=== PATIENT | female | born 1950 | race Caucasian/White ===

== ENCOUNTER 2019-11-24 08:59 | Outpatient (CLI) | payer MEDICARE, OTHER, SELFPAY ==
--- NOTE | 2019-11-24 09:13 | MM_ITS ---
WS: [id number] Bilateral screening digital mammogram, 11/24/2019 Clinical Data: SCREENING Comparison: 11/22/2018, 10/08/2017, 06/26/2016, 06/02/2013, 02/23/2011, 03/25/2009. Findings: The breast parenchymal pattern shows fat replacement. No spiculated masses or clustered calcification s are seen. There are no secondary signs of carcinoma. Mole markers are on both breasts. MM/[id number] Impression: 1. Negative bilateral mammogram unchanged. 2. Recommend annual screening mammograms. BIRADS: 1-Negative FOLLOW UP: 1 Year Follow-up The CAD steel checker was used.
== END 2019-11-24 09:00 | disposition home or self-care (01) ==
LOC: RADSHAW 09:03
PROVIDERS: PCP Internal Medicine; Visit Provider Family Medicine
DX: Z12.31 Encounter for screening mammogram for malignant neoplasm of breast (principal)
CPT/HCPCS: 77067

== ENCOUNTER 2021-01-30 14:08 | Outpatient (CLI) | payer MEDICARE, OTHER, SELFPAY ==
--- NOTE | 2021-01-30 14:27 | MM_ITS ---
WS: [id number] BILATERAL SCREENING DIGITAL MAMMOGRAM WITH CAD HISTORY: SCREEN COMPARISON: 11/24/2019, 10/08/2017 and 06/26/2016 Bilateral CC and MLO views submitted. Computer aided detection analyzed. Breast composition: There are scattered areas of fibroglandular density. No suspicious masses, microc alcifications or architectural distortion. Stable nodules in the anterior RIGHT breast. No suspicious calcification or developing mass. MM/[id number] IMPRESSION: BI-RADS: 2-Benign FOLLOW UP: 1 Year Follow-up
== END 2021-01-30 14:09 | disposition home or self-care (01) ==
LOC: RADSHAW 14:20
PROVIDERS: PCP Internal Medicine; Visit Provider Internal Medicine
DX: Z12.31 Encounter for screening mammogram for malignant neoplasm of breast (principal)
CPT/HCPCS: 77067

== ENCOUNTER → 2021-02-16 10:26 | Outpatient (BNVA) | payer MEDICARE, OTHER, SELFPAY | PROVIDERS: Visit Provider Family Medicine | DX: N39.0 Urinary tract infection, site not specified (principal) | CPT/HCPCS: 81000 ==

== ENCOUNTER → 2021-10-08 10:10 | Outpatient (BNVA) | payer MEDICARE, OTHER, SELFPAY | PROVIDERS: PCP Family Medicine; Visit Provider Family Medicine | DX: R25.2 Cramp and spasm (principal); I10 Essential (primary) hypertension; E11.9 Type 2 diabetes mellitus without complications; E03.9 Hypothyroidism, unspecified; Z78.0 Asymptomatic menopausal state | CPT/HCPCS: 80053; 80061; 83036; 83735; 84443 ==

== ENCOUNTER 2021-11-14 13:35 | Outpatient (CLI) | payer MEDICARE, OTHER, SELFPAY ==
--- NOTE | 2021-11-14 14:00 | XR_ITS ---
WS: [id number] DEXA (DUAL ENERGY X-RAY ABSORPTIOMETRY) Bone mineral density was performed using a [employer] machine. HISTORY: screening COMPARISON: None available. Lumbar spine BMD (L1-L4): 1.268 g/cm2 T score: 0.7 Z score: 2.0 Total hip BMD: Left: 0.945 g/cm2. T score: -0.5 Z score: 0.8 Right: 0.999 g/cm2. T score: -0.1 Z score: 1.2 10 year probability of a major osteoporotic fracture is 8.3%. Mild LEFT curvature lumbar spine. XR/XR DEXA axial skeleton* [id number] IMPRESSION: Normal bone mineral density based upon the WHO classification for females.
== END 2021-11-14 13:36 | disposition home or self-care (01) ==
LOC: RAD 13:36
PROVIDERS: PCP Family Medicine; Visit Provider Family Medicine
DX: Z13.820 Encounter for screening for osteoporosis (principal); Z78.0 Asymptomatic menopausal state
CPT/HCPCS: 77080

== ENCOUNTER → 2021-12-17 09:24 | Outpatient (BNVA) | payer MEDICARE, OTHER, SELFPAY | PROVIDERS: PCP Family Medicine; Visit Provider Family Medicine | DX: G62.9 Polyneuropathy, unspecified (principal); M54.9 Dorsalgia, unspecified; M62.838 Other muscle spasm | CPT/HCPCS: 80048; 82607; 83735 ==

== ENCOUNTER → 2021-12-18 13:06 | Outpatient (BNVA) | payer MEDICARE, OTHER, SELFPAY | PROVIDERS: PCP Family Medicine; Visit Provider Family Medicine | DX: I10 Essential (primary) hypertension (principal); E87.1 Hypo-osmolality and hyponatremia | CPT/HCPCS: 80048 ==

== ENCOUNTER 2021-12-22 12:43 | Emergency (ER) | payer MEDICARE, OTHER, SELFPAY ==
[2021-12-22 13:48] VITALS: BP 132/78; PULSE 71; RESP 16; TEMP 36.7; O2SAT 97
[2021-12-22 14:31] VITALS: BP 158/88; PULSE 77; RESP 16; TEMP 36.4; O2SAT 97; BMI 32.1
[2021-12-22 15:05] LABS: Basophils % 0.6 %; Eosinophils # 0.1 10^3/uL (0.0-0.8); Hematocrit 39.9 % (37.0-47.0); Hemoglobin 12.3 g/dL (11.5-15.3); Lymphocytes % 28.6 %; Mean Corpuscular HGB Conc 30.8 g/dL (30.0-36.0); Mean Corpuscular Hemoglobin 27.8 pg (28.0-34.0); Mean Corpuscular Volume 90.1 fl (81-99); Mean Platelet Volume 8.7 fL (7.4-10.4); Monocytes # 0.5 10^3/uL (0.2-0.9); Monocytes % 7.1 %; Neutrophils # 4.34 10^3/uL (1.8-7.7); Neutrophils % 61.4 %; Nucleated Red Blood Cells % 0 %; Platelet Count 384 10^3/cmm (130-400); Red Blood Count 4.43 10^6/uL (4.1-5.3); Red Cell Distribution Width 13.5 % (12.1-15.1); White Blood Count 7.1 10^3/uL (4.0-10.0)
[2021-12-22 15:22] LABS: Add Urine Microscopic? NO; Charge for UA Resulting for Rev
[2021-12-22 15:22] LABS: Alanine Aminotransferase 64 U/L (0-33); Albumin Level 4.5 g/dL (3.5-5.2); Alkaline Phosphatase 97 U/L (35-105); Anion Gap 16.3 (5-19); Aspartate Amino Transferase 62 U/L (0-32); Blood Urea Nitrogen 10 mg/dL (8-23); Calcium 9.6 mg/dL (8.5-10.5); Carbon Dioxide 25 mmol/L (22-29); Chloride 93 mmol/L (98-107); Globulin 3.5 g/dL (1.3-4.6); Glucose 124 mg/dL (65-115); Osmolality Calculated 270 mOsm/kg (285-295); Potassium 4.3 mmol/L (3.5-5.1); Sodium 130 mmol/L (136-145); Total Bilirubin 0.2 mg/dL (0.15-1.2)
[2021-12-22 15:26] LABS: Bilirubin Urine Neg (Negative); Blood Urine Neg (Negative); Glucose Urine UA Norm (Normal); Ketones Urine Negative (Negative); Leukocyte Esterase Urine Negative (Negative); Nitrate Urine Negative (Negative); Protein Urine Neg (Negative); Specific Gravity, Urine 1.005 (1.005-1.030); Urine Appearance Clear (CLEAR); Urine Color Straw (Yellow); Urobilinogen Urine Norm (Negative); pH Urine 5 (5-7)
--- NOTE | 2021-12-22 15:58 | W.ED.RECABL ---
HPI - Recheck/Abnormal Lab/Rx General: Chief Complaint: Recheck/Abnormal Lab/Rx Stated Complaint: low sodium, sent for IV Time Seen by Provider: 12/22/21 15:58 History of Present Illness: Patient is a 71-year-old female comes to the ED for abnormal labs. Patient was sent to the ED her primary care provider. Labs were drawn on patient 2 days ago and her sodium came back low.. She got a call from her doctor today to tell her about sodium levels and have her go directly to the ER for evaluation. She has been struggling with muscle cramps and some fatigue over the past year that her doctor has been managing. She denies any other current symptoms. Review of Systems Const: Reports: fatigue; Denies: fever(s) or chills Eyes: Denies: change in vision or eye discomfort ENMT: Denies: throat pain, odynophagia, nasal discharge or nasal congestion Card: Denies: chest pain, palpitations, edema, swelling of feet/ankles, dyspnea on exertion or orthopnea Resp: Denies: dyspnea, productive cough or non-productive cough GI: Denies: abdominal pain, nausea, vomiting, diarrhea, constipation or hematochezia : Denies: flank pain, dysuria or hematuria Musc: Reports: muscle cramps; Denies: neck pain, back pain or extremity swelling Skin/Breast: Denies: rash or new lesions Neuro: Denies: headache(s), numbness in extremities or weakness in extremities [facility] ED PFSH: Medical History Diabetes mellitus type 2, controlled, without complications Fatty infiltration of liver GERD (gastroesophageal reflux disease) History of nonmelanoma skin cancer follows juvencio/ Dr. Sinha History of recurrent urinary tract infection Hypertension Hypothyroidism Nodular thyroid disease multiple bilateral nodules, FNA negative Osteoarthritis of hips, bilateral Rosacea Spondylosis of lumbar spine Statin intolerance Surgical History History of arthroscopy of left knee History of breast biopsy History of tonsillectomy Family History Father CAD (coronary artery disease) Mother CAD (coronary artery disease) Sister CAD (coronary artery disease) Dementia Diabetes Hypertension Sister CAD (coronary artery disease) Diabetes Hypertension Grandfather Cancer Grandmother Cancer Sister Diabetes Hypertension Social History Smoking and tobacco status: never smoked Second hand smoke exposure: No Smoking risk assessment/counseling performed?: No Alcohol intake: never Lives independently: Yes Household members: spouse Marital status: Current occupational status: retired Physical Exam Const: COMMON NORMALS: no acute distress, patient oriented x3, healthy appearing and alert GENERAL APPEARANCE: cooperative and comfortable HENMT: COMMON NORMALS: normocephalic HEAD & SCALP: normocephalic MOUTH: Normal oral and palatal mucosa present THROAT: posterior oropharynx normal and uvula midline Neck/C-Spine: COMMON NORMALS: supple GENERAL: Yes normal visual inspection Resp: COMMON NORMALS: normal respiratory effort, No retractions, No use of accessory muscles and clear to auscultation bilaterally AUSCULTATION: clear to auscultation bilaterally Cardio: COMMON NORMALS: regular rate, regular rhythm, S1 normal heart sound present, S2 normal heart sound present, No gallops present (Cardio), No clicks present (Cardio), No murmurs present (Cardio) and Peripheral pulses 2+ throughout RATE: regular rate RHYTHM: regular rhythm HEART SOUNDS: S1 normal heart sound present and S2 normal heart sound present PERIPHERAL PULSES: Peripheral pulses 2+ throughout GI: COMMON NORMALS: Normal to inspection, nondistended, normoactive bowel sounds present, Soft to palpation, non-tender and no masses PALPATION: Yes Soft to palpation : COMMON NORMALS: Yes no CVA tenderness BLADDER/KIDNEY EXAM: Yes no CVA tenderness Back/Pelvis: COMMON NORMALS: no CVA tenderness Extremity: COMMON NORMALS: normal to inspection Neuro: COMMON NORMALS: patient oriented x3 SENSORIUM/ORIENTATION: Yes alert GAIT: Yes Normal gait present Skin: GENERAL SKIN EXAM: dry skin Course Vital Signs: Vital signs: Vital Signs Temperature 97.5 F L 12/22/21 14:31 Pulse Rate 77 12/22/21 14:31 Respiratory Rate 16 12/22/21 14:31 Blood Pressure 158/88 12/22/21 14:31 Pulse Oximetry 97 12/22/21 14:31 Oxygen Delivery Me thod 12/22/21 14:31 MDM - Recheck/Abnormal Lab/Rx Medical Decision Making Patient is a 71-year-old female comes to the ED due to abnormal labs. Patient's primary care doctor sent patient here to the ED for IV normal saline fluids due to low sodium levels. Patient denies any current symptoms. Vitals are stable. Exam of patient is benign. CBC was unremarkable. Sodium of 130 and the rest of her labs were unremarkable. Patient was given half a liter of IV saline and discharged home. She was diagnosed with hyponatremia and told to follow-up with her PCP in the next 2 to 3 days to have her sodium levels rechecked. Strict return ED precautions given. Patient understood and agreed with plan. Lab Data I reviewed the patient's lab results. : 12/22/21 14:58 12/22/21 14:58 Laboratory Results WBC 7.1 10^3/uL (4.0-10.0) 12/22/21 14:58 RBC 4.43 10^6/uL (4.1-5.3) 12/22/21 14:58 Hgb 12.3 g/dL (11.5-15.3) 12/22/21 14:58 Hct 39.9 % (37.0-47.0) 12/22/21 14:58 MCV 90.1 fl (81-99) 12/22/21 14:58 MCH 27.8 pg (28.0-34.0) L 12/22/21 14:58 MCHC 30.8 g/dL (30.0-36.0) 12/22/21 14:58 RDW 13.5 % (12.1-15.1) 12/22/21 14:58 Plt Count 384 10^3/cmm (130-400) 12/22/21 14:58 MPV 8.7 fL (7.4-10.4) 12/22/21 14:58 Neut % (Auto) 61.4 % 12/22/21 14:58 Lymph % (Auto) 28.6 % 12/22/21 14:58 [place] % (Auto) 7.1 % 12/22/21 14:58 Eos % (Auto) 2.0 % 12/22/21 14:58 Baso % (Auto) 0.6 % 12/22/21 14:58 Neut # (Auto) 4.34 10^3/uL (1.8-7.7) 12/22/21 14:58 Lymph # (Auto) 2.0 10^3/uL (0.8-4.8) 12/22/21 14:58 [place] # (Auto) 0.5 10^3/uL (0.2-0.9) 12/22/21 14:58 Eos # (Auto) 0.1 10^3/uL (0.0-0.8) 12/22/21 14:58 Baso # (Auto) 0.0 10^3/uL (0.0-0.1) 12/22/21 14:58 Nucleated RBC % (auto) 0 % 12/22/21 14:58 Nucleated RBCs # 0.0 /100WBC 12/22/21 14:58 Sodium 130 mmol/L (136-145) L 12/22/21 14:58 Potassium 4.3 mmol/L (3.5-5.1) 12/22/21 14:58 Chloride 93 mmol/L (98-107) L 12/22/21 14:58 Carbon Dioxide 25 mmol/L (22-29) 12/22/21 14:58 Anion Gap 16.3 (5-19) 12/22/21 14:58 BUN 10 mg/dL (8-23) 12/22/21 14:58 Creatinine 0.8 mg/dL (0.5-0.9) 12/22/21 14:58 GFR Calculation Not Reportable 12/22/21 14:58 Glucose 124 mg/dL (65-115) H 12/22/21 14:58 Calculated Osmolality 270 mOsm/kg (285-295) L 12/22/21 14:58 Calcium 9.6 mg/dL (8.5-10.5) 12/22/21 14:58 Total Bilirubin 0.2 mg/dL (0.15-1.2) 12/22/21 14:58 AST 62 U/L (0-32) H 12/22/21 14:58 ALT 64 U/L (0-33) H 12/22/21 14:58 Alkaline Phosphatase 97 U/L (35-105) 12/22/21 14:58 Total Protein 8.0 g/dL (6.6-8.7) 12/22/21 14:58 Albumin 4.5 g/dL (3.5-5.2) 12/22/21 14:58 Globulin 3.5 g/dL (1.3-4.6) 12/22/21 14:58 Urine Color Straw (Yellow) 12/22/21 15:15 Urine Appearance Clear (CLEAR) 12/22/21 15:15 Urine pH 5 (5-7) 12/22/21 15:15 Ur Specific [place] 1.005 (1.005-1.030) 12/22/21 15:15 Urine Protein Neg (Negative) 12/22/21 15:15 Urine Glucose (UA) Norm (Normal) 12/22/21 15:15 Urine Ketones Negative (Negative) 12/22/21 15:15 Urine Blood Neg (Negative) 12/22/21 15:15 Urine Nitrate Negative (Negative) 12/22/21 15:15 Urine Bilirubin Neg (Negative) 12/22/21 15:15 Urine Urobilinogen Norm mg/dL (Negative) 12/22/21 15:15 Ur Leukocyte Esterase Negative (Negative) 12/22/21 15:15 Discharge Plan Discharge Patient Disposition: Home Clinical Impression: Hyponatremia Condition: Stable Prescriptions: No Action ciclopirox 8 % solution 1 applic topical DAILY 336 Days Qty: 6.6 3RF omeprazole 20 mg capsule,delayed release(DR/EC) 20 mg PO DAILY lisinopril 40 mg tablet 40 mg PO DAILY chlorthalidone 25 mg tablet 25 mg PO DAILY metronidazole 0.75 % cream 1 applic topical BID albuterol sulfate 90 mcg/actuation HFA aerosol inhaler 2 puff inhalation Q6H PRN tizanidine 2 mg tablet 2 mg PO TID PRN (Reason: muscle spasticity) Qty: 30 0RF metformin 1,000 mg tablet 1,000 mg PO BID 30 Days Qty: 60 2RF levothyroxine 25 mcg tablet 25 mcg PO DAILY 90 Days Qty: 90 1RF Discharge Orders: Discharge ED (Routine); Ordered 12/22/21 Ordered By: David Dean Referrals: Darby Fernando MD [Primary Care Provider] - Discharge Diet: Regular Discharge Activity: Resume usual activity Patient Instructions: Hyponatremia (ED) Activity Restrictions/Additional Instructions: Follow-up with medical provider as directed in the next 3 to 5 days for reevaluation and to have your sodium levels rechecked. Continue taking all home medications as previously prescribed return to the ER or your medical provider if condition worsens. Please read and understand discharge instructions. Thank you for choosing [facility] for your healthcare needs today. Please realize this is an emergency room and that we are providing you with a medical screening exam and this may not be complete and all inclusive of all the testing and or work up that you may need to determine your ailment or severity of your illness. It is very important that you follow up as instructed or that you return to the Emergency Department should you have concerns or if your condition changes or worsens in any way. Coding Level of Care Code ED Airplane Cover Maker for Sathya Fwd Exam Comprehensive
[2021-12-22] MEDS: sodium chloride 0.9% 500 ML 999 ML IV (16:35)
== END 2021-12-22 17:10 | disposition home or self-care (01) ==
PROVIDERS: Emergency Medicine; Emergency Provider Physician Assistant; PCP Family Medicine
DX: E87.1 Hypo-osmolality and hyponatremia (principal); Z79.84 Long term (current) use of oral hypoglycemic drugs; E11.9 Type 2 diabetes mellitus without complications; I10 Essential (primary) hypertension
CPT/HCPCS: 36415; 80053; 81003; 85025; 96360; 99284; J7040

== ENCOUNTER → 2021-12-24 11:54 | Outpatient (BNVA) | payer MEDICARE, OTHER, SELFPAY | PROVIDERS: PCP Family Medicine; Visit Provider Family Medicine | DX: E83.42 Hypomagnesemia (principal); E87.1 Hypo-osmolality and hyponatremia | CPT/HCPCS: 80048; 83735 ==

== ENCOUNTER → 2022-01-12 14:14 | Outpatient (BNVA) | payer MEDICARE, OTHER, SELFPAY | PROVIDERS: PCP Family Medicine; Visit Provider Family Medicine | DX: E87.1 Hypo-osmolality and hyponatremia (principal) | CPT/HCPCS: 80048 ==

== ENCOUNTER 2022-02-12 11:21 | Outpatient (CLI) | payer MEDICARE, OTHER, SELFPAY ==
--- NOTE | 2022-02-12 11:44 | MM_ITS ---
WS: [id number] Bilateral screening 3D tomosynthesis digital mammogram, 02/12/2022 Clinical Data: SCREENING Comparison: 01/30/2021, 11/24/2019, 11/22/2018, 10/08/2017, 06/26/2016, 06/02/2013, 02/23/2011, 03/25/2009 . Findings: The breast parenchymal pattern shows fibroglandular tissue. No spiculated masses or clustered calcifi cations are seen. There are no secondary signs of carcinoma. There are mole markers on the left breas t. There are right axillary lymph nodes. MM/[id number] Impression: 1. Negative bilateral mammogram unchanged. 2. Recommend annual screening mammograms. BIRADS: 1-Negative FOLLOW UP: 1 Year Follow-up The CAD brick paving checker was used.
== END 2022-02-12 11:22 | disposition home or self-care (01) ==
LOC: RAD 11:28
PROVIDERS: PCP Family Medicine; Visit Provider Family Medicine
DX: Z12.31 Encounter for screening mammogram for malignant neoplasm of breast (principal)
CPT/HCPCS: 77063; 77067

== ENCOUNTER → 2022-05-07 09:36 | Outpatient (BNVA) | payer MEDICARE, OTHER, SELFPAY | PROVIDERS: PCP Family Medicine; Visit Provider Family Medicine | DX: E03.9 Hypothyroidism, unspecified (principal); E83.42 Hypomagnesemia; E11.9 Type 2 diabetes mellitus without complications; I10 Essential (primary) hypertension | CPT/HCPCS: 80053; 80061; 83036; 83735; 84443 ==

== ENCOUNTER 2022-05-29 11:14 | Outpatient (RCR) | payer MEDICARE, OTHER, SELFPAY | END 2022-06-07 23:59 | disposition home or self-care (01) | LOC: SPT 11:14 | PROVIDERS: PCP Family Medicine; Visit Provider Family Medicine | DX: M54.50 Low back pain, unspecified (principal) | CPT/HCPCS: 97161 ==

== ENCOUNTER 2022-06-08 06:00 | Outpatient (RCR) | payer MEDICARE, OTHER, SELFPAY | END 2022-07-08 23:59 | disposition home or self-care (01) | LOC: SPT 06:00 | PROVIDERS: PCP Family Medicine; Visit Provider Family Medicine | DX: M54.9 Dorsalgia, unspecified (principal); M70.61 Trochanteric bursitis, right hip | CPT/HCPCS: 97110 ==

== ENCOUNTER 2022-07-02 14:19 | Outpatient (CLI) | payer MEDICARE, OTHER, SELFPAY ==
--- NOTE | 2022-07-02 14:39 | XR_ITS ---
WS: [id number] Lumbar spine, 3 views, 07/02/2022 Clinical Data: low back pain Comparison: Lumbar spine, 05/23/2015 Findings: No compression fractures or subluxation is seen. There is degenerative disc narrowing at all lumbar l evels with minimal anterior osteophytes. The transverse processes and SI joints are normal. There is a levoscoliosis. XR/XR lumbar spine 2-3V* [id number] Impression: 1. Degenerative disc narrowing along with anterior osteophytes unchanged. 2. Minimal levoscoliosis.
--- NOTE | 2022-07-02 14:39 | XR_ITS ---
WS: [id number] Left hip, AP and frog-leg views, 07/02/2022 Clinical Data: left hip pain Comparison: Bilateral hips, 05/23/2015. Findings: No fractures or dislocations are seen. The left hip shows narrowing and sclerosis. There is no cyst f ormation or fragmentation of the left femoral head. There is loss of the normal spherical shape of th e left femoral head.. The soft tissues are not remarkable. The adjacent pelvis is normal. XR/XR hip LT 2-3V wo/w pel* [id number] Impression: Moderate osteoarthritis of the left hip Ton[place] classification: grade 2: small cysts in femoral head/acetabulum or moder ate joint space narrowing or moderate loss of head sphericity
== END 2022-07-02 14:20 | disposition home or self-care (01) ==
LOC: RAD 14:26
PROVIDERS: PCP Family Medicine; Visit Provider Family Medicine
DX: M16.12 Unilateral primary osteoarthritis, left hip (principal); M47.816 Spondylosis without myelopathy or radiculopathy, lumbar region; M25.78 Osteophyte, vertebrae; M41.9 Scoliosis, unspecified; M25.552 Pain in left hip; M54.50 Low back pain, unspecified
CPT/HCPCS: 72100; 73502

== ENCOUNTER 2022-07-28 07:40 | Outpatient (RCR) | payer MEDICARE, OTHER, SELFPAY | END 2022-08-07 23:59 | disposition home or self-care (01) | LOC: SPT 07:40 | PROVIDERS: PCP Family Medicine; Visit Provider Family Medicine | DX: M54.9 Dorsalgia, unspecified (principal); M70.61 Trochanteric bursitis, right hip | CPT/HCPCS: 97110 ==

== ENCOUNTER → 2022-08-03 07:44 | Outpatient (BNVA) | payer MEDICARE, OTHER, SELFPAY | PROVIDERS: PCP Family Medicine; Referring Provider Family Medicine; Visit Provider Student in an Organized Health Care Education/Training Program | DX: M16.12 Unilateral primary osteoarthritis, left hip (principal) | CPT/HCPCS: 99204 ==

== ENCOUNTER → 2022-08-20 08:12 | Outpatient (BNVA) | payer MEDICARE, OTHER, SELFPAY | PROVIDERS: PCP Family Medicine; Visit Provider Family Medicine | DX: E11.9 Type 2 diabetes mellitus without complications (principal); K76.0 Fatty (change of) liver, not elsewhere classified | CPT/HCPCS: 80053; 80061; 83036 ==

== ENCOUNTER → 2022-09-04 06:48 | Outpatient (BNVA) | payer MEDICARE, OTHER, SELFPAY | PROVIDERS: PCP Family Medicine; Visit Provider Student in an Organized Health Care Education/Training Program | DX: M16.12 Unilateral primary osteoarthritis, left hip (principal) | CPT/HCPCS: 20610; 77002; 99214; J3301 ==

== ENCOUNTER → 2022-11-23 08:41 | Outpatient (BNVA) | payer MEDICARE, OTHER, SELFPAY | PROVIDERS: PCP Family Medicine; Visit Provider Family Medicine | DX: E11.9 Type 2 diabetes mellitus without complications (principal); E03.9 Hypothyroidism, unspecified; I10 Essential (primary) hypertension; Z00.00 Encounter for general adult medical examination without abnormal findings; M16.12 Unilateral primary osteoarthritis, left hip | CPT/HCPCS: 80053; 80061; 83036; 84443; 99213 ==

== ENCOUNTER → 2023-02-18 09:28 | Outpatient (BNVA) | payer MEDICARE, OTHER, SELFPAY | PROVIDERS: PCP Family Medicine; Visit Provider Family Medicine | DX: R30.0 Dysuria (principal); N39.0 Urinary tract infection, site not specified | CPT/HCPCS: 81000 ==

== ENCOUNTER → 2023-08-04 12:29 | Outpatient (BNVA) | payer MEDICARE, OTHER, SELFPAY | PROVIDERS: PCP Family Medicine; Visit Provider Family Medicine | DX: R39.9 Unspecified symptoms and signs involving the genitourinary system (principal); E11.9 Type 2 diabetes mellitus without complications; N39.0 Urinary tract infection, site not specified | CPT/HCPCS: 80053; 80061; 81000; 82607; 83036 ==

== ENCOUNTER → 2023-09-02 09:45 | Outpatient (BNVA) | payer MEDICARE, OTHER, SELFPAY | PROVIDERS: PCP Family Medicine; Visit Provider Family Medicine | DX: R79.89 Other specified abnormal findings of blood chemistry (principal) | CPT/HCPCS: 82607 ==

== ENCOUNTER → 2023-11-03 09:18 | Outpatient (BNVA) | payer MEDICARE, OTHER, SELFPAY | PROVIDERS: PCP Family Medicine; Visit Provider Family Medicine | DX: E11.9 Type 2 diabetes mellitus without complications (principal) | CPT/HCPCS: 80053; 80061; 82607; 83036 ==

== ENCOUNTER → 2023-11-29 09:35 | Outpatient (BNVA) | payer MEDICARE, OTHER, SELFPAY | PROVIDERS: PCP Family Medicine; Visit Provider Family Medicine | DX: I10 Essential (primary) hypertension (principal) | CPT/HCPCS: 80048 ==

== ENCOUNTER → 2024-01-24 11:28 | Outpatient (BNVA) | payer MEDICARE, OTHER, SELFPAY | PROVIDERS: PCP Family Medicine; Visit Provider Family Medicine | DX: E11.9 Type 2 diabetes mellitus without complications (principal); R79.89 Other specified abnormal findings of blood chemistry | CPT/HCPCS: 80048 ==

== ENCOUNTER → 2024-04-12 08:36 | Outpatient (BNVA) | payer MEDICARE, OTHER, SELFPAY | PROVIDERS: PCP Family Medicine; Visit Provider Family Medicine | DX: E11.9 Type 2 diabetes mellitus without complications (principal); E03.9 Hypothyroidism, unspecified | CPT/HCPCS: 80053; 80061; 82607; 83036; 84443 ==

== ENCOUNTER 2024-04-18 10:10 | Outpatient (CLI) | payer MEDICARE, OTHER, SELFPAY ==
--- NOTE | 2024-04-18 10:20 | MM_ITS ---
WS: [id number] BILATERAL 3D TOMOSYNTHESIS DIGITAL SCREENING MAMMOGRAPHY WITH CAD CLINICAL INFORMATION: breast cancer screening HISTORY: Screening mammogram. No current complaints. COMPARISON: 2022 TECHNIQUE: Bilateral CC and MLO views. FINDINGS: Scattered fibroglandular densities bilaterally. No suspicious focal mass, asymmetry, calcifications, or architectural distortion. No evidence of malignancy. A few incidental punctate calcifications. Vascular calcifications. MM/MM scr tomosynthesis [id number] IMPRESSION: DENSITY: There are scattered areas of fibroglandular density. BI-RADS: 2 - Benign. FOLLOW UP: 1 Year Follow-up Recommend return to annual screening mammography.
== END 2024-04-18 10:11 | disposition home or self-care (01) ==
PROVIDERS: PCP Family Medicine; Visit Provider Family Medicine
DX: Z12.31 Encounter for screening mammogram for malignant neoplasm of breast (principal); E03.9 Hypothyroidism, unspecified; R92.323 Mammographic fibroglandular density, bilateral breasts; R92.1 Mammographic calcification found on diagnostic imaging of breast
CPT/HCPCS: 77063; 77067

== ENCOUNTER → 2024-07-17 09:38 | Outpatient (BNVA) | payer MEDICARE, OTHER, SELFPAY | PROVIDERS: PCP Family Medicine; Visit Provider Family Medicine | DX: E11.9 Type 2 diabetes mellitus without complications (principal); K76.0 Fatty (change of) liver, not elsewhere classified; L71.9 Rosacea, unspecified; L98.9 Disorder of the skin and subcutaneous tissue, unspecified | CPT/HCPCS: 80053; 80061; 83036 ==

== ENCOUNTER → 2024-10-26 11:02 | Outpatient (BNVA) | payer MEDICARE, OTHER, SELFPAY | PROVIDERS: PCP Family Medicine; Visit Provider Family Medicine | DX: N39.0 Urinary tract infection, site not specified (principal) | CPT/HCPCS: 81000; 87086 ==

== ENCOUNTER 2024-12-21 12:47 | Outpatient (CLI) | payer MEDICARE, OTHER, SELFPAY ==
--- NOTE | 2024-12-21 12:52 | XR_ITS ---
WS: [id number] DEXA (DUAL ENERGY X-RAY ABSORPTIOMETRY) Bone mineral density was performed using a [employer] machine. HISTORY: OSTEOPOROSIS SCREENING COMPARISON: 11/14/2021 Lumbar spine BMD (L1-L4): 1.262 g/cm2 T score: 0.7 Z score: 2.2 Left forearm BMD: 0.804 g/cm2. T score: -0.8 Z score: 1.5 Compared to the prior study from 11/14/2021. Lumbar spine bone mineral density has decreased by 0.5%. XR/XR DEXA axial skeleton* [id number] IMPRESSION: NORMAL BONE MINERAL DENSITY based upon the WHO classification for females.
== END 2024-12-21 12:48 | disposition home or self-care (01) ==
LOC: RAD 12:48
PROVIDERS: PCP Family Medicine; Visit Provider Family Medicine
DX: Z13.820 Encounter for screening for osteoporosis (principal); Z78.0 Asymptomatic menopausal state
CPT/HCPCS: 77080

== ENCOUNTER → 2025-01-15 08:46 | Outpatient (BNVA) | payer MEDICARE, OTHER, SELFPAY | PROVIDERS: PCP Family Medicine; Visit Provider Family Medicine | DX: E11.9 Type 2 diabetes mellitus without complications (principal); E03.9 Hypothyroidism, unspecified | CPT/HCPCS: 80053; 80061; 83036; 84443 ==